=== PATIENT | female | born 1985 | race African-American/Black ===

== ENCOUNTER 2016-09-06 14:02 | Emergency (ER) | payer SELFPAY ==
[~2016-09-06] VITALS: Ht 170.2 cm; Wt 60.0 kg
[~2016-09-06 14:02] MED LIST: HYDR-3583 PO; MELO-1 PO; ZOLO100T PO
[2016-09-06 14:05] VITALS: BP 145/74; PULSE 94; RESP 16; TEMP 97.2; O2SAT 99
--- NOTE | 2016-09-06 14:19 | PD ---
Physical Exam Date Seen by Provider: Sep 06, 2016 Time Seen by Provider: 14:15 Narrative Patient seen in Triage with Complaints of Lower Abdominal Pain and Cramping with Light Intermittent Vaginal Spotting. Patient unsure if . Patient states LMP beginning of august. Patient denies Fever, Chills, or Flank Pain. No urinary Dysuria. Patient has had Nausea, but no Vomiting or Diarrhea. Vital Signs Stable. Patient awaiting Bed Placement. Data Data Last Documented VS Vital Signs Date Time Temp Pulse Resp B/P Pulse Ox O2 Delivery O2 Flow Rate FiO2 09/06/16 14:05 97.2 94 16 145/74 99 Room Air [facility] Medical Record Reviewed: Yes Supervised Visit with MITCHELL: Yes Condition: Stable Phil Pineda Sep 06, 2016 14:19
--- NOTE | 2016-09-06 16:22 | PD ---
HPI Chief Complaint: Mowing Machine Operator Problem/Complaint Time Seen by Provider: 16:20 (Louann Avilez) Time Seen by Provider: 16:10 (Lucia Jurado MD) Travel History International Travel<30 days: No Contact w/Intl Traveler<30days: No Traveled to known affect area: No (Louann Avilez) History of Present Illness HPI 31-year-old female presents to the emergency department for evaluation of abnormal vaginal bleeding for 2 weeks. The patient states she had 1 week of light vaginal bleeding and 1 week of normal menstrual bleeding. States that this began about a week earlier than her normal period. States that she is concerned she may be , she did not take a test at home. States that she's had some very mild abdominal cramping in the morning. Denies any fever, chills, nausea, vomiting, diarrhea, constipation, dysuria, heavy bleeding, lightheadedness, dizziness, shortness of breath. No other complaints. (Louann Avilez) PFSH Past Medical History Depression: Yes Diminished Hearing: No Immunizations Current: No ?: Unknown LMP: QUESTIONABLE : 1 Miscarriage: 1 Dilation and Curettage (D&C): Yes (Louann Avilez) Past Surgical History Gynecologic Surgery: Yes (D & C) (Louann Avilez) Social History Alcohol Use: No Tobacco Use: Yes (3 CIGS A DAY) Substance Use: No (Louann Avilez) Allergies-Medications (Allergen,Severity, Reaction): Coded Allergies: No Known Allergies (Verified , 10/21/14) Reported Meds & Prescriptions Reported Meds & Active Scripts Active Reported Meloxicam 15 Mg Tab 15 Mg PO DAILY Hydrocodone-Acetaminophen 10-325 mg Tab 1 Tab PO Q6H PRN Zoloft (Sertraline HCl) 100 Mg Tab 100 Mg PO HS (Lucia Jurado MD) Review of Systems Except as stated in HPI: all other systems reviewed are Neg (Louann Avilez) Physical Exam Narrative GENERAL: Well-nourished and well-developed pleasant female patient in no acute distress who is nontoxic appearing. SKIN: Warm and dry. HEAD: Normocephalic and atraumatic. EYES: No injection, drainage, or hyphema noted. PERRLA. EOMI. ENT: No nasal drainage noted. Oropharynx is clear. NECK: Supple and the trachea is midline. CARDIOVASCULAR: Regular rate and rhythm. RESPIRATORY: Breath sounds are equal bilaterally with no accessory muscle use, wheezing, rhonchi, or crackles. GASTROINTESTINAL: Abdomen is soft, non-tender, and nondistended. MUSCULOSKELETAL: No obvious deformities, swelling, cyanosis, or ecchymosis is present throughout the upper and lower extremities. Patient has full range of motion without any signs of neurovascular compromise. NEUROLOGICAL: Awake, alert, and oriented. Normal speech and gait. Cranial nerves are grossly intact. (Louann Avilez) Data Data Last Documented VS Vital Signs Date Time Temp Pulse Resp B/P Pulse Ox O2 Delivery O2 Flow Rate FiO2 09/06/16 14:05 97.2 94 16 145/74 99 Room Air (Lucia Jurado MD) Orders Ed Urine Pregnancytest Poc (09/06/16 16:22) (Lucia Jurado MD) Orders Ed Urine Pregnancytest Poc (09/06/16 16:22) (Louann Avilez) MDM Medical Decision Making Medical Screen Exam Complete: Yes Emergency Medical Condition: Yes Differential Diagnosis Dysmenorrhea versus versus abnormal menstruation Narrative Course 31-year-old female presents to the emergency department for evaluation of abnormal vaginal bleeding. Patient is afebrile, vital signs are stable. Physical examination is unremarkable. Abdominal examination is benign. ED urine test is negative. She has no signs or symptoms of anemia and has not had any heavy bleeding. I discussed with the patient this is dysmenorrhea and she should follow-up as an outpatient with her marketing project specialist. Patient verbalizes understanding and agreement with treatment plan. I discussed the case with my attending physician Dr. Cuellar who is aware of the patients history, physical examination findings, and treatment plan. ( Louann Avilez) Diagnosis Primary Impression: Dysmenorrhea Referrals: [facility] Receipt And Report Clerk Patient Instructions: Dysmenorrhea (ED), General Instructions Additional Instructions: Follow-up with a marketing project specialist or your Primary Care Provider. Return to the ED for any acute worsening of symptoms. Med/Other Pt SpecificInfo: No Change to Meds (Louann Avilez) Disposition: 01 DISCHARGE HOME (ERASED) Condition: Stable Louann Avilez Sep 06, 2016 16:22 Lucia Jurado MD Sep 07, 2016 14:01
== END 2016-09-06 17:24 | disposition home or self-care (01) ==
LOC: NEPA 14:02
DX: N94.6 Dysmenorrhea, unspecified (principal)
CPT/HCPCS: 84703; 99283

== ENCOUNTER 2016-10-07 00:10 | Emergency (ER) | payer SELFPAY ==
[~2016-10-07] VITALS: Ht 175.3 cm; Wt 55.0 kg
[2016-10-07 00:12] VITALS: BP 153/90; PULSE 70; RESP 16; TEMP 98; O2SAT 98
[2016-10-07] MEDS ORDERED: TETANUS/DIPHTHERIA TOXOID ADULT 0.5 ML VIAL IM ONE (00:45)
--- NOTE | 2016-10-07 00:52 | PD ---
HPI Chief Complaint: Eye Problems/Injury Time Seen by Provider: 00:45 Travel History International Travel<30 days: No Contact w/Intl Traveler<30days: No Traveled to known affect area: No History of Present Illness HPI 31-year-old black female presents to emergency department with a complaint of foreign body sensation in her left eye. States that she was driving with the window down this evening. She states that approximately 4 hours ago she felt as if something flew into her left eye. Since then she has had foreign body sensation. No diplopia. No tearing or discharging. Pain is mild to moderate. She has not had said shot over 5 years. She does not wear glasses or contacts. PFSH Past Medical History Narrative Medical Anxiety, depression, chronic back pain Depression: Yes Diminished Hearing: No Immunizations Current: No Tetanus Vaccination: > 5 Years ?: Not : 1 Miscarriage: 1 Dilation and Curettage (D&C): Yes Past Surgical History Narrative Surgical D&C. Gynecologic Surgery: Yes (D & C) Social History Alcohol Use: No Tobacco Use: Yes (3 CIGS A DAY) Substance Use: No Allergies-Medications (Allergen,Severity, Reaction): Coded Allergies: No Known Allergies (Verified , 10/21/14) Reported Meds & Prescriptions Reported Meds & Active Scripts Active Reported Meloxicam 15 Mg Tab 15 Mg PO DAILY Hydrocodone-Acetaminophen 10-325 mg Tab 1 Tab PO Q6H PRN Zoloft (Sertraline HCl) 100 Mg Tab 100 Mg PO HS Review of Systems Except as stated in HPI: all other systems reviewed are Neg Eyes: Positive: Redness, Foreign Body Sensation, Pain, Tearing, No: Diploplia , Blurred Vision, Photophobia, Drainage, Visual changes Physical Exam Narrative GENERAL: Well-developed, well-nourished in no acute distress. Nontoxic appearing. HEAD: Normocephalic, atraumatic. EYES: Pupils equal round and reactive. Extraocular motions intact. No scleral icterus. No injection or drainage in the right eye. The left eye is slightly injected. Ophthaine is instilled in the left eye. She has had resolution of her pain. The lids are flipped and there is a foreign body noted underneath the upper eyelid. This is removed freely with a cotton tip applicator. Fluorescein stain reveals a superficial abrasion to the upper left sclera this is out of the visual field area. The cornea is clear. ENT: TMs clear without erythema. The external auditory canals clear. Nose: clear . Posterior pharynx is pink and moist. No tonsillar edema or exudate. Uvula midline. Airway patent. NECK: Trachea midline.Supple, nontender, moves head freely. No central bony tenderness or spasm. CARDIOVASCULAR: Regular rate and rhythm without murmurs, gallops, or rubs. RESPIRATORY: Clear to auscultation. Breath sounds equal bilaterally. No wheezes , rales, or rhonchi. GASTROINTESTINAL: Abdomen soft, non-tender, nondistended. No hepato-splenomegaly , or palpable masses. No guarding. EXTREMITIES: No clubbing, cyanosis, or edema. No joint tenderness, effusion, or edema noted. BACK: Nontender without deformity or crepitance. No flank tenderness. Data Data Last Documented VS Vital Signs Date Time Temp Pulse Resp B/P Pulse Ox O2 Delivery O2 Flow Rate FiO2 10/07/16 00:12 98.0 70 16 153/90 98 Orders Tetanus/Diphtheria Tox Adult (Tetanus/Di (10/07/16 00:45) MDM Medical Decision Making Medical Screen Exam Complete: Yes Emergency Medical Condition: Yes Medical Record Reviewed: Yes Differential Diagnosis MDM: High Differential diagnoses: Acute conjunctivitis (bacterial, viral, allergic, traumatic), glaucoma, iritis, traumatic globe injury, foreign body, corneal abrasion, corneal ulcer, diabetic retinopathy, photokeratitis, herpes keratitis , CMV retinitis Narrative Course Patient had a foreign body underneath her upper eyelid which has been removed. Tetanus status updated. This is left eye foreign body removed Diagnosis Primary Impression: left eye foreign body-removed Patient Instructions: General Instructions Additional Instructions: Rest. No eye rubbing. Followup with an eye doctor in 2-3 days. Return to the ER if any problems. Med/Other Pt SpecificInfo: No Meds Exist/No RX given Disposition: 01 DISCHARGE HOME Condition: Stable Jim Post Oct 07, 2016 00:52
== END 2016-10-07 01:03 | disposition home or self-care (01) ==
LOC: NEPD 00:10
DX: T15.92XA Foreign body on external eye, part unspecified, left eye, initial encounter (principal); X58.XXXA Exposure to other specified factors, initial encounter; Z72.0 Tobacco use; Z23 Encounter for immunization
CPT/HCPCS: 65205; 90471; 90714

== ENCOUNTER 2017-07-06 07:48 | Emergency (ER) | payer SELFPAY ==
[~2017-07-06] VITALS: Ht 170.2 cm; Wt 60.0 kg
[~2017-07-06 07:48] MED LIST changes: -MELO-1 PO; +MELO15TA20 PO
[2017-07-06 07:49] VITALS: BP 124/71; PULSE 99; RESP 15; TEMP 100.2; O2SAT 99
[2017-07-06] MEDS ORDERED: XANA2TAB2 PO (08:07)
--- NOTE | 2017-07-06 08:10 | PD ---
HPI Chief Complaint: Cold / Flu Symptoms Time Seen by Provider: 08:02 Travel History International Travel<30 days: No Contact w/Intl Traveler<30days: No Traveled to known affect area: No History of Present Illness HPI The patient is a 32-year-old [place] female who presents emergency department for cough and cold symptoms that started yesterday. The patient states she developed a cough yesterday which is mostly dry and nonproductive. She also complains of mild anterior chest pain without any significant shortness of breath or wheezing. She denies any nausea, vomiting, diarrhea, abdominal pain, or dysuria. She also complains of some generalized myalgias. The patient did not receive an influenza vaccination this year. She does endorse subjective fevers at home without chills or sweats. Symptoms are moderate without any alleviating or exacerbating factors. PFSH Past Medical History Anxiety: Yes Depression: Yes Diminished Hearing: No Immunizations Current: Yes ?: Not LMP: 06/29/17 : 1 Miscarriage: 1 Dilation and Curettage (D&C): Yes Past Surgical History Gynecologic Surgery: Yes (D & C) Social History Alcohol Use: No Tobacco Use: Yes (3 CIGS A DAY) Substance Use: No Allergies-Medications (Allergen,Severity, Reaction): Coded Allergies: No Known Allergies (Verified , 10/21/14) Reported Meds & Prescriptions Reported Meds & Active Scripts Active Reported Xanax (Alprazolam) 2 Mg Tab 2 Mg PO BID PRN Zoloft (Sertraline HCl) 100 Mg Tab 100 Mg PO HS Review of Systems Except as stated in HPI: all other systems reviewed are Neg General / Constitutional: Positive: Fever (subjective) HENT: Positive: Congestion Cardiovascular: Positive: Chest Pain or Discomfort Respiratory: Positive: Cough Gastrointestinal: No: Nausea, Vomiting, Diarrhea, Abdominal Pain Genitourinary: No: Dysuria Musculoskeletal: Positive: Myalgias Physical Exam Narrative GENERAL: Awake, alert, pleasant 32 year-old female who appears her stated age and is in no acute respiratory distress. SKIN: Focused skin assessment warm/dry. HEAD: Atraumatic. Normocephalic. EYES: Pupils equal and round. No scleral icterus. No injection or drainage. ENT: No nasal bleeding or discharge. Mucous membranes pink and moist. No erythema or exudate noted. NECK: Trachea midline. No JVD. CARDIOVASCULAR: Regular rate and rhythm. No murmur appreciated. Heart rate in the 90s. RESPIRATORY: No accessory muscle use. Clear to auscultation. Breath sounds equal bilaterally. No wheezes, rale's, or rhonchi. GASTROINTESTINAL: Abdomen soft, non-tender, nondistended. No rebound tenderness. Back: No CVA tenderness. MUSCULOSKELETAL: No obvious deformities. No clubbing. No cyanosis. No edema. NEUROLOGICAL: Awake and alert. No obvious cranial nerve deficits. Motor grossly within normal limits. Normal speech. PSYCHIATRIC: Appropriate mood and affect; insight and judgment normal. Data Data Last Documented VS Vital Signs Date Time Temp Pulse Resp B/P (MAP) Pulse Ox O2 Delivery O2 Flow Rate FiO2 07/06/17 07:49 100.2 99 15 124/71 (88) 99 Orders Orders Influenzae A/B Antigen (07/06/17 08:07) Chest, Single Ap (07/06/17 ) MDM Medical Decision Making Medical Screen Exam Complete: Yes Emergency Medical Condition: Yes Medical Record Reviewed: Yes Interpretation(s) Last Impressions Chest X-Ray 07/06/17 0000 Signed Impressions: Service Date/Time: Thursday, July 06, 2017 08:12 - CONCLUSION: Normal exam. Desiree Sandhu MD Date/Time Source Procedure Growth Status 07/06/17 08:35 Nasal Aspirate Influenza Types A,B Antigen ([facility]) - Final NEGATIVE FOR FLU A AND B ANTIGEN.... Complete Differential Diagnosis Differential diagnosis includes bronchitis, pneumonia, influenza, viral syndrome , URI. Narrative Course Chest x-ray was obtained. Influenza screen was sent to lab. Chest x-ray was unremarkable. No evidence of pneumonia. Influenza screen is negative. Patient has symptoms consistent with bronchitis. The patient be discharged home on Zithromax, steroids, and albuterol inhaler. She is advised to follow- up with a primary physician and return if symptoms worsen or progress. Diagnosis Primary Impression: Bronchitis Patient Instructions: General Instructions Additional Instructions: Medications as directed. Work excuse for one day. Please provide a patient a copy of her flu results and chest x-ray results at discharge. Return if symptoms worsen or progress. Alternate Tylenol and Motrin as needed for fever. Med/Other Pt SpecificInfo: Prescription(s) given Scripts Azithromycin (Zithromax Z-Wan) 250 Mg Dspk 250 MG PO DIRECTED for Infection, #1 DSPK 0 Refills 500 MG (2 tabs) day 1, then 1 tab days 2-5. Prov: Thaddeus Saba MD 07/06/17 Albuterol 18 GM Inh (Ventolin Hfa 18 GM Inh) 90 Mcg/Act Aer 2 PUFF INH Q4H Y for SHORTNESS OF BREATH, #1 INHALER 0 Refills Prov: Thaddeus Saba MD 07/06/17 Prednisone (Prednisone) 20 Mg Tab 40 MG PO DIRECTED for 5 Days, TAB 0 Refills Prov: Thaddeus Saba MD 07/06/17 Disposition: 01 DISCHARGE HOME Condition: Stable Thaddeus Saba MD Jul 06, 2017 08:10
--- NOTE | 2017-07-06 08:43 | RADRPT ---
EXAM DATE/TIME: 07/06/2017 08:12 [place] COMPARISON: No previous studies available for comparison. INDICATIONS : Patient complains of cough, congestion, and fever. MEDICAL HISTORY : None. SURGICAL HISTORY : None. ENCOUNTER: Initial ACUITY: 1 day PAIN SCORE: 4/10 LOCATION: chest FINDINGS: A single view of the chest demonstrates the lungs to be symmetrically aerated without evidence of mas s, infiltrate or effusion. The cardiomediastinal contours are unremarkable. Osseous structures are intact. CONCLUSION: Normal exam. Desiree Sandhu MD on July 06, 2017 at 8:40 Board Certified Radiologist. This report was verified electronically.
[2017-07-06] MEDS ORDERED: PRED20 PO (09:01)
[2017-07-06] MEDS ORDERED: VENTAER INH (09:01)
[2017-07-06] MEDS ORDERED: ZITHTAB PO (09:01)
== END 2017-07-06 09:16 | disposition home or self-care (01) ==
LOC: NEPC 07:48
DX: J40 Bronchitis, not specified as acute or chronic (principal); F17.210 Nicotine dependence, cigarettes, uncomplicated
CPT/HCPCS: 71045; 87804; 99284

== ENCOUNTER 2017-12-02 08:52 | Emergency (ER) | payer SELFPAY ==
[~2017-12-02] VITALS: Ht 170.2 cm; Wt 64.0 kg
[~2017-12-02 08:52] MED LIST changes: -HYDR-3583 PO; -MELO15TA20 PO; +PRED20 PO; +VENTAER INH; +XANA2TAB2 PO; +ZITHTAB PO
[2017-12-02 08:58] VITALS: BP 118/56; PULSE 64; RESP 16; TEMP 98.9; O2SAT 64; O2SAT 99
[2017-12-02] MEDS ORDERED: HYDR-3583 PO (09:08)
[2017-12-02] MEDS ORDERED: CEPH-460 PO ×2 (09:20→09:29)
[2017-12-02] MEDS ORDERED: BACT800T5 PO ×2 (09:20→09:29)
--- NOTE | 2017-12-02 09:21 | PD ---
HPI Chief Complaint: Skin Problem Time Seen by Provider: 09:07 Travel History International Travel<30 days: No Contact w/Intl Traveler<30days: No Traveled to known affect area: No History of Present Illness HPI 32-year-old female presents emergency department for evaluation of a hard painful lump in her right axilla. Patient states she first noticed it 2 weeks ago. She denies any fever chills. States she feels like the area is getting bigger. Pain is a dull awareness. It is exacerbated by touch. She denies any trauma. She does shave her axilla. She has no medical conditions. She has no other symptoms to report. PFSH Past Medical History Anxiety: Yes Depression: Yes Diminished Hearing: No Immunizations Current: Yes ?: Not : 1 Miscarriage: 1 Dilation and Curettage (D&C): Yes Past Surgical History Gynecologic Surgery: Yes (D & C) Social History Alcohol Use: No Tobacco Use: Yes (3 CIGS A DAY) Substance Use: No Allergies-Medications (Allergen,Severity, Reaction): Coded Allergies: No Known Allergies (Verified Adverse Reaction, Unknown, 12/02/17) Reported Meds & Prescriptions Reported Meds & Active Scripts Active Keflex (Cephalexin) 500 Mg Cap 500 Mg PO Q6H 5 Days Bactrim DS (Sulfamethoxazole-Trimethoprim) 800-160 Mg Tab 1 Tab PO BID Ventolin Hfa 18 GM Inh (Albuterol Sulfate) 90 Mcg/Act Aer 2 Puff INH Q4H PRN Reported Hydrocodone-Acetaminophen 10-325 mg Tab 1 Tab PO Q6H PRN Xanax (Alprazolam) 2 Mg Tab 2 Mg PO BID PRN Zoloft (Sertraline HCl) 100 Mg Tab 100 Mg PO HS Review of Systems Except as stated in HPI: all other systems reviewed are Neg Physical Exam Narrative GENERAL: Well-nourished, well-developed female patient in no acute distress SKIN: There is an indurated area in the right axilla which measures about 1 cm in diameter. There is no fluctuance and no pointing or drainage. There is a zone of inflammation around it but no lymphangitis. HEAD: Normocephalic. EYES: No scleral icterus. No injection or drainage. NECK: Supple, trachea midline. No JVD or lymphadenopathy. CARDIOVASCULAR: Regular rate and rhythm without murmurs, gallops, or rubs. RESPIRATORY: Breath sounds equal bilaterally. No accessory muscle use. Data Data Last Documented VS Vital Signs Date Time Temp Pulse Resp B/P (MAP) Pulse Ox O2 Delivery O2 Flow Rate FiO2 12/02/17 08:58 98.9 64 16 118/56 (76) 99 Orders Orders Ed Discharge Order (12/02/17 09:16) MDM Medical Decision Making Medical Screen Exam Complete: Yes Emergency Medical Condition: Yes Medical Record Reviewed: Yes Differential Diagnosis Cellulitis versus abscess versus folliculitis versus erysipelas versus adenopathy Narrative Course 32-year-old female presents emergency department for evaluation of a painful hard lump in her right axilla. This is an area of induration, probable folliculitis however there is no abscess at this time to drain. Have encouraged warm compresses. I explained to her to not squeeze the area. I also explained her that this may in fact develop into an abscess that will need to be drained. She agrees to start her antibiotics today, follow these care instructions, and follow-up with primary care provider. She will return immediately with acute worsening symptoms. Diagnosis Primary Impression: Folliculitis of axilla Referrals: Primary Care Physician Patient Instructions: Folliculitis (ED), General Instructions Departure Forms: Tests/Procedures, Work Release Enter return to work date: Dec 03, 2017 Additional Instructions: Warm compresses to the affected area Do not squeeze it The area may develop into an abscess that needs to be drained Tylenol or ibuprofen as directed on the package as needed for pain Return immediately with acute worsening symptoms Med/Other Pt SpecificInfo: Prescription(s) given Scripts Cephalexin (Keflex) 500 Mg Cap 500 MG PO Q6H for Infection for 5 Days, #20 CAP 0 Refills Prov: Karen Yoo 12/02/17 Sulfamethoxazole-Trimethoprim (Bactrim DS) 800-160 Mg Tab 1 TAB PO BID for Infection, #20 TAB 0 Refills Prov: Karen Yoo 12/02/17 Disposition: 01 DISCHARGE HOME Condition: Stable Karen Yoo Dec 02, 2017 09:21
== END 2017-12-02 09:43 | disposition home or self-care (01) ==
LOC: NEPK 08:52
DX: L73.9 Follicular disorder, unspecified (principal); F17.210 Nicotine dependence, cigarettes, uncomplicated; F32.9 Major depressive disorder, single episode, unspecified
CPT/HCPCS: 99283